=== PATIENT | male | born 1950 | race Caucasian/White ===

== ENCOUNTER 2018-03-23 09:00 | Outpatient (RCR) | payer OTHER, SELFPAY ==
--- NOTE | 2018-03-09 14:26 | PTTR_ITS ---
DATE: 03/09/18 SUBJECTIVE: Giuseppe reports continued improvements with his active abduction. He has been substituting, somewhat, to swing his arm into the scapular plane when abducting, such as when resting his elbow on his car door while driving. Still having difficulty with left side lying positions. OBJECTIVE: Manual therapy: ([id number]). Left glenohumeral joint A/AAROM through full range. Lateral distractions, caudal glides, internal and external rotation mobs. Therapeutic procedures ([id number]). * x See flow sheet: rhythmic stabilizations with arm flexed at 90 followed by prone Hughstons. Direct treatment time: 9:00 til 9:30 A.M. Completed strengthening via [facility] at no charge. Assessment: Holding up well with AROM. Improved abduction with less pain. Still weak with external rotation. Plan: Continue 2x per week on MSP while rechecking 1x every 2 weeks for upgrades in strengthening as need be. MM/gc
--- NOTE | 2018-03-23 09:00 | PN_ITS ---
DATE: 03/23/18 REFERRING: Dr. Palak Bautista REFERRING PROVIDER DIAGNOSIS:: L shoulder pain REPORTING PERIOD (for progress note and discharge note only): 01/19/18 to SUBJECTIVE: Patient reports still having difficulty with L sidelying positions and raising his arm into abduction with his palm down. This is virtually asymptomatic now with the palm up. Does feel as he is making continued progress with his strengthening in clinic on a minimally supervised basis. Follows up with orthopedist in mid April. Standardized Measures: * Disability Arm/Shoulder/Hand Score (DASH): 34%, which is comparable to what he scored at last visit. (Patient's DASH was miscalculated at last visit to be 9% which was actually 34%) . This can be seen in EMR on DASH that he filled out. OBJECTIVE: Treatment: Seen for a re-check. Manual Therapy [id number]: Patient's AROM of L GH joint flexion, IR/ER WNL, abduction is still painful with palm down position. With palm up, he is achieving 165 degrees with minimal pain. Strength is 4-/5 to 4/5 ER with mild pain, 4+/5 IR painfree. Flexion 4/5 with mild pain, abduction 4+/5 painfree with palm up position. He has (-) empty can , mildly (+) Hawkin's Tye, (-) Neer's, (-) Speed's, (-) belly compress, (-) lift off. Performed a friction massage over anterior cuff, trigger points to posterior cuff as well as some lateral distraction, caudal glides. Therapeutic Procedure [id number]: for review of rotator cuff strengthening, particularly for sidelying ER incorporating scap retraction and depression. ASSESSMENT: Patient has met all STG established at [facility] LTG remain appropriate, and still progressing towards achieving these goals (SEE BELOW). Do feel he is appropriate for continued therapeutic exercise which he has been performing on an independent program. ST) decrease pain by 50% - met 2) patient independent and compliant with HEP - met 3) patient sleeping through the night painfree - still remain appropriate and have not been met 4) increase strength to greater than 4/5 on the left with ext rotation and abduction - still remain appropriate and have not been met LTG: __[x]__ Return to premorbid level of function * __[x]__ Independent with self-maintenance program * *remain appropriate but have not been met G-Codes (add modifier after appropriate code): Patient's primary functional limitation is in the category of: * x Carrying, moving and handling objects: [id number] Projected goal: [id number] PLAN: Continue with MSP, will follow up with him prior to his ortho visit and issue MD note. MM/dl
== END 2018-04-03 23:59 | disposition home or self-care (01) ==
LOC: PT 09:00
PROVIDERS: PCP Family Medicine; Referring Provider Family Medicine; Visit Provider Family Medicine
DX: M25.512 Pain in left shoulder (principal); M75.42 Impingement syndrome of left shoulder
CPT/HCPCS: 97110; 97140

== ENCOUNTER 2018-12-14 01:21 | Outpatient (CLI) | payer OTHER, SELFPAY ==
[2018-12-14 13:42] LABS: ALT 61 U/L (12-78); AST 29 U/L (15-37); Albumin 3.6 g/dL (3.4-5.0); Alkaline Phosphatase 70 U/L (46-116); Anion Gap 8.8 mmol/L (3-11); BUN 22 mg/dL (7-18); Bilirubin, Total 0.6 mg/dL (0.2-1.0); CO2 29.2 mmol/L (21.0-32.0); CREATININE 1.29 mg/dL (0.70-1.30); Calcium 9.1 mg/dL (8.5-10.1); Chloride 105 mmol/L (98-107); Cholesterol 222 mg/dL (50-200); Estimated GFR 55.06 (mL/min/1.73m2); Glucose 96 mg/dL (70-100); HDL Cholesterol 47 mg/dL (40-60); LDL CHOLESTEROL 150 mg/dL (<100); Potassium 3.9 mmol/L (3.5-5.1); Sodium 143 mmol/L (136-145); Total Protein 6.8 g/dL (6.4-8.2); Triglyceride 175 mg/dL (30-150)
== END 2018-12-14 01:41 ==
PROVIDERS: PCP Family Medicine; Visit Provider Urology
DX: I10 Essential (primary) hypertension (principal); Z12.5 Encounter for screening for malignant neoplasm of prostate
CPT/HCPCS: 36415; 80053; 80061; 83721; 84153

== ENCOUNTER 2019-02-08 11:41 | Emergency (ER) | payer OTHER, SELFPAY ==
[2019-02-08] VITALS (42 sets, daily range): BP systolic 128–154; BP diastolic 75–88; PULSE 44–60; RESP 0–28; TEMP 37; O2SAT 89–99
--- NOTE | 2019-02-08 12:31 | DI.COMBO_ITS ---
SYMPTOM/DIAGNOSIS: LT FACIAL AND ARM TINGLING, ? ACUTE CVA PA AND LATERAL CHEST: The heart is normal in size. The lungs are clear. The mediastinal structures and pleura appear intact. CONCLUSION: Normal chest. CRANIAL CT (WITHOUT CONTRAST): A noncontrast cranial CT was performed. The ventricular system is normal in appearance. There is no evidence of an intracranial mass lesion. There is no evidence of a subdural or epidural hematoma. No focal areas of decreased attenuation are seen. CONCLUSION: Normal noncontrast Cranial CT.
--- NOTE | 2019-02-08 12:34 | ED.GENADUL_ITS ---
Discharge Plan Disposition Patient Disposition: AGAINST MEDICAL ADVICE Condition: Stable Discharge Details Chief Complaint: GenMedical Clinical Impression: Facial paresthesia, Paresthesia of left arm Primary Care Provider: Palak Bautista ED Provider: Rehana Singh Home Meds and New Rx's Prescriptions: Continued acetaminophen [Tylenol Extra Strength] 500 MG tablet 1,000 mg PO BID PRNRF: 0 hydrochlorothiazide 12.5 mg capsule 12.5 mg PO DAILY Qty: 90 RF: 4 No Action aspirin 81 mg tablet,chewable 81 mg PO DAILY RF: 0 Discharge Instructions Instructions: Paresthesia (ED) Additional Instructions: Call Dr. Bautista's office tomorrow morning to schedule a follow-up appointment for reevaluation and for referral for an outpatient carotid ultrasound and/or echocardiogram. Return immediately to the emergency department if you develop any worsening or new concerning symptoms. Discharge Data Discharge Date/Time-TO BE ENTERED AT DEPARTURE: 02/08/19 17:44 Discharge Physician: Rehana Singh Medical Decision Making 68-year-old male with a history of thoracic impingement disorder, sciatica, kidney stones who presents with left facial and left arm tingling since yesterday. Heart rate 50s, has dipped down to the 40s at times. Remainder vitals within normal limits. EKG notes a rate of 51, T wave inversion in 3 and aVF which is been seen in previous with new T wave inversion in V5 and V6 but no acute ST elevation. No focal deficits on exam. Patient appears comfortable and in no acute distress. Based on age and symptoms, sent for stat CT head with stroke protocol, screening labs and chest x-ray ordered. 1330 --CT head negative. Labs reviewed and unremarkable. Potassium 3.3. Troponin negative. Chest x-ray negative. Patient states he does not want to stay in the hospital. Discussed with patient my concern for his symptoms relating to possible stroke requiring further evaluation of his bradycardia and possible etiology of possible stroke. He is agreeable to stay for MRI brain which will be at 3:30 PM. 1545 --patient to go to MRI now. He states his left arm tingling has resolved but still admits to some left facial tingling and numbness. 1720 --MRI brain negative. Patient still admits to some left arm and facial tingling. Advised that patient stay for further evaluation including carotid ultrasound and echocardiogram and continued observation but patient is declining at this time. The risks of and disability due to a serious pathology were explained to patient fully understands. He demonstrates capacity make decisions. AMA form signed. Instructed to f/u with pcp in 2 days and return here immediately if worse. Medical Records Medical records reviewed: Yes I reviewed the patient's medical records. Imaging Data Radiologic Study: Radiologist's impression: PA AND LATERAL CHEST: The heart is normal in size. The lungs are clear. The mediastinal structures and pleura appear intact. CONCLUSION: Normal chest. CRANIAL CT (WITHOUT CONTRAST): A noncontrast cranial CT was performed. The ventricular system is normal in appearance. There is no evidence of an intracranial mass lesion. There is no evidence of a subdural or epidural hematoma. No focal areas of decreased attenuation are seen. CONCLUSION: Normal noncontrast Cranial CT. MR Head Without Contrast EXAM DATE/TIME: 02/08/2019 4:38 PM CLINICAL HISTORY: 68 years old, male; Numbness / parasthesia; Patient HX: Left facial and arm tingling, R/O acute CVA. TECHNIQUE: Imaging protocol: MR of the head without contrast. COMPARISON: CT HEAD FOR STROKE PROTOCOL 02/08/2019 12:40 PM FINDINGS: Brain: Ventricles and sulci are within normal limits. There is no evidence of an intracranial mass or shift. There is very minimal T2 bright signal involving the periventricular white matter which may be related to small vessel ischemic changes microangiopathy or senescent change. There may be minimal T2 bright signal within the joslyn. There is no restricted diffusion to suggest recent, acute or subacute ischemia or cytotoxic edema. There is no evidence of cortical or major vascular territory infarct. There is no abnormal susceptibility to suggest prior hemorrhage. Ventricles: No significant ventricular enlargement Bones/joints: Calvarium is unremarkable. Craniocervical junction is unremarkable Soft tissues: Unremarkable. Sinuses: There is mucoperiosteal thickening and retention cyst in the inferior aspect of the right maxillary antrum. There is no significant sinus opacification or fluid level Mastoid air cells: No significant mastoid opacification Orbits: The orbits are unremarkable Other vasculature: Flow voids in the intracranial vessels are unremarkable on the sequences obtained. IMPRESSION: No acute findings. No restricted diffusion to suggest recent, acute or subacute ischemia Lab Data Lab results reviewed: Yes I reviewed the patient's lab results. ECG Data Attestation: I personally reviewed and interpreted this ECG (s) as follows: Interpretation: Rate of 51, sinus, T wave inversion in 3 and aVF which is been seen in previous. New T wave inversion in V5 and V6. No acute ST elevation or depression. QTc 390. QRS 100. HPI General Mode of arrival: ambulatory . Date/Time Provider Initiated Documentation: 02/08/19 11:59 . Limitations to Documentation: no limitations . Information obtained by: patient . HPI Narrative: Patient is a 68-year-old male with a history of thoracic cord impingement, hypertension who presents to the ED with complaint of left-sided facial and left arm tingling since yesterday. Patient states his left facial tingling started yesterday in the left arm tingling started this morning. He states the tingling radiates from his shoulder down to his left thumb. He denies any weakness or pain. He denies any fever, chest pain, shortness of breath, dizziness, vision changes, headache, recent travel, recent surgery, leg pain or swelling. Patient states he had previously seen physical therapy for his history of thoracic cord impingement but his only symptoms with this or back pain and he denies any numbness or tingling with this. Related Data Home Medications Medication Instructions Recorded Confirmed acetaminophen [Tylenol Extra 1,000 mg PO BID PRN tab-cap 05/23/16 02/15/19 Strength] hydrochlorothiazide 12.5 mg capsule 12.5 mg PO DAILY #90 cap 11/10/18 02/15/19 aspirin 81 mg chewable tablet 81 mg PO DAILY 02/15/19 02/15/19 Previous Rx's Medication Instructions Recorded hydrochlorothiazide 12.5 mg capsule 12.5 mg PO DAILY #90 cap 11/10/18 Allergies Allergy/AdvReac Type Severity Reaction Status Date / Time No Known Allergies Allergy Unverified 02/15/19 09:32 General Stated Complaint: GenMedical FLORINDA: 3 Review of Systems Review of Systems All systems reviewed & are unremarkable except as noted in HPI and below Constitutional Reports as per HPI, Denies chills and Denies fever(s) Eyes Denies blurry vision ENT Denies dizziness, Denies sore throat and Denies throat swelling Cardiovascular Denies chest pain and Denies dyspnea Respiratory Denies cough and Denies dyspnea Gastrointestinal Denies abdominal pain, Denies diarrhea and Denies vomiting Genitourinary Denies hematuria and Denies dysuria Musculoskeletal Denies back pain, Denies numbness and Reports tingling Integumentary/Breasts Denies lesions and Denies rash Neurologic Denies dizziness, Denies focal weakness, Denies numbness and Reports tingling Allergic/Immunologic Denies throat swelling [facility] Medical History 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) Right flank pain (Resolved 12/02/16) Raised prostate specific antigen (Chronic) Polyp of colon (Chronic 08/27/12) Lumbar disc disease with radiculopathy (Chronic 05/09/15) Left hip pain (Chronic 03/27/15) Knee pain (Chronic) Hyperlipidemia (Chronic 02/01/13) Hearing loss (Chronic) Fatigue (Chronic 01/22/18) Diverticulosis of colon without diverticulitis (Chronic 08/27/12) Depressive disorder (Chronic) 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) Epistaxis (Resolved) Essential hypertension (Resolved 07/30/13) Hypocalcemia (Resolved) Impingement syndrome of shoulder region (Resolved) Inguinal hernia (Resolved) Kidney stone (Resolved) Left sided sciatica (Resolved 05/04/15) Pre-op exam (Resolved 10/24/15) Surgical History S/P spinal surgery (Chronic 11/20/15) S/P foot surgery (Resolved) S/P inguinal hernia repair (Resolved) S/P prostatectomy (Resolved) S/P rotator cuff repair (Resolved) Back surgery Colonoscopy - IV Sedation (08/26/12) Prostatectomy Repair of inguinal hernia Rotator Cuff Repair Surgeries Family History Mother Essential hypertension Dementia Father Dementia Lung cancer Sister No problems noted. Brother No problems noted. Brother No problems noted. Social History Smoking/Tobacco Use Status: Never Alcohol Intake: current Alcohol Intake frequency: 0-2 drinks per day Drug use: Never Substance use type: does not use Caregiver/Support person: No Household members: none Communication Needs: Hard of Hearing Pets and animals: Yes Pets and animals: cat(s) Sexually active: Yes Do you think of yourself as: straight/heterosexual Current gender identity: male What is your relationship status?: How often do you talk on the phone with friends or family?: twice per week How often do you get together with friends or relatives?: once per week How often do you attend yazidi or protestant services?: 4 or more times per year Do you belong to any clubs or organized social groups?: no Panel score (0-1 are the most socially isolated patients): 2 What type of physical activity do you participate in: walking Duration: 30-45 minutes/day Frequency: daily Belkis/Mormon: Uatsdin Special belkis needs: No Seatbelt use: always Drive intox or ride w/intox escort vehicle driver: No Do you feel safe at home: Yes Do you feel safe in your relationship?: Yes Exam Const General: cooperative, healthy appearing and no acute distress HENMT Head: normal to inspection Face and sinus: normal facial exam Eyes General: appearance normal, both eyes and all related structures Pupils: PERRL EOM: EOM intact bilaterally Neck Neck: normal visual inspection and No submandibular swelling Lymphatic: no lymphadenopathy noted Chest Chest: normal inspection of the chest and no tenderness Resp Effort & Inspection: normal respiratory effort and able to speak in complete sentences Auscultation: clear to auscultation bilaterally Cardio Rate: regular rate Rhythm: regular rhythm GI Inspection: normal to inspection Palpation: soft, not firm, not rigid and nontender Auscultation: normal bowel sounds Male General Exam: Yes normal external exam Skin General skin exam: no rashes or lesions noted Neuro General: alert, awake and oriented x3 Cranial Nerves: CN's II-XI intact bilaterally Cognition: normal cognition Speech: speech normal Motor: muscle tone normal throughout and strength 5/5 throughout Sensory Exam: no sensory deficits noted Extrem General: normal to inspection, full ROM, normal capillary refill, no calf tenderness bilaterally and no edema Psych Appearance: grossly normal Mental Status: mental status grossly normal Speech and Movement: speech and movement normal Affect: normal affect Course Vital Signs Temperature 98.6 F 02/08/19 11:55 Pulse 54 L 02/08/19 11:55 Respiratory Rate 16 02/08/19 11:55 Blood Pressure 147/88 H 02/08/19 11:55 Pulse Oximetry 99 02/08/19 11:55 Temperature 98.6 F 02/08/19 11:55 Temperature Source Skin 02/08/19 11:55 Pulse 54 L 02/08/19 11:55 Respiratory Rate 16 02/08/19 11:55 Respiratory Effort Non-Labored 02/08/19 11:55 Blood Pressure 147/88 H 02/08/19 11:55 Blood Pressure Position Sitting 02/08/19 11:55 Pulse Oximetry 99 02/08/19 11:55 Oxygen Delivery Method Room Air 02/08/19 11:55 Oxygen Flow Rate 0 02/08/19 11:55 Pain Level 0 02/08/19 11:55
[2019-02-08 12:50] LABS: Absolute Basophil Count 0.02 k/cumm (0.0-0.2); Absolute Eosinophil Count 0.13 k/cumm (0.0-0.7); Absolute Lymphocyte Count 1.38 k/cumm (1.2-3.4); Absolute Neutrophil Count 3.26 k/cumm (1.2-6.7); Basophils % 0.4; Eosinophils % 2.5; HCT 43.8 % (40.0-50.0); HGB 15.7 g/dL (13.5-17.5); Lymphocytes % 26.1; Mean Corp. HGB Concentration 35.8 g/dL (32.0-36.0); Mean Corpuscular Hemoglobin 34.1 pg (27.0-33.0); Mean Platelet Volume 10.7 fL (8.0-11.0); Monocytes % 9.5; Neutrophils % 61.5; Platelet Count 156 x1000/uL (130-400); RBC 4.61 m/cumm (4.50-6.00); RBC Distribution Width 12.9 % (11.8-14.1); White Blood Cell Count 5.29 k/cumm (4.4-10.8)
[2019-02-08 13:08] LABS: ALT 30 U/L (12-78); AST 15 U/L (15-37); Albumin 3.7 g/dL (3.4-5.0); Alkaline Phosphatase 68 U/L (46-116); Anion Gap 10.6 mmol/L (3-11); BUN 19 mg/dL (7-18); Bilirubin, Total 0.8 mg/dL (0.2-1.0); CO2 25.4 mmol/L (21.0-32.0); CREATININE 1.15 mg/dL (0.70-1.30); Chloride 105 mmol/L (98-107); Glucose 100 mg/dL (70-100); Magnesium 1.9 mg/dL (1.8-2.4); Potassium 3.3 mmol/L (3.5-5.1); Sodium 141 mmol/L (136-145)
[2019-02-08 13:09] LABS: Troponin I < 0.05 ng/mL (0.00-0.06)
[2019-02-08 13:13] LABS: PTT Activated 25.9 sec (21.0-31.4); Prothrombin Time 10.2 sec (9.3-11.0)
--- NOTE | 2019-02-08 16:40 | DI.MRI_ITS ---
SYMPTOM/DIAGNOSIS: LEFT FACIAL AND ARM TINGLING. R/O ACUTE CVA BRAIN MRI: 02/08/19 MR examination of the brain was performed according to the usual protocol. Incidental note is made of an apparent retention cyst of the right maxillary antrum. There is moderate generalized cerebral atrophy and there are multiple small focal areas of abnormal signal and periventricular white matter consistent with microvascular ischemic change. No other significant signal abnormality identified in the brain. The orbital and temporal bone structures appear intact. There is normal flow void in the [place] vasculature. Pituitary is unremarkable. Susceptibility weighted imaging shows no evidence of intracranial hemorrhage. Diffusion weighted imaging shows no evidence of infarct. CONCLUSION: Atrophy and mild microvascular ischemic changes of white matter. No other significant findings.
--- NOTE | 2019-02-08 17:19 | DI.VRAD_ITS ---
EXAM: MR Head Without Contrast EXAM DATE/TIME: 02/08/2019 4:38 PM CLINICAL HISTORY: 68 years old, male; Numbness / parasthesia; Patient HX: Left facial and arm tingling, R/O acute CVA. TECHNIQUE: Imaging protocol: MR of the head without contrast. COMPARISON: CT HEAD FOR STROKE PROTOCOL 02/08/2019 12:40 PM FINDINGS: Brain: Ventricles and sulci are within normal limits. There is no evidence of an intracranial mass or shift. There is very minimal T2 bright signal involving the periventricular white matter which may be related to small vessel ischemic changes microangiopathy or senescent change. There may be minimal T2 bright signal within the joslyn. There is no restricted diffusion to suggest recent, acute or subacute ischemia or cytotoxic edema. There is no evidence of cortical or major vascular territory infarct. There is no abnormal susceptibility to suggest prior hemorrhage. Ventricles: No significant ventricular enlargement Bones/joints: Calvarium is unremarkable. Craniocervical junction is unremarkable Soft tissues: Unremarkable. Sinuses: There is mucoperiosteal thickening and retention cyst in the inferior aspect of the right maxillary antrum. There is no significant sinus opacification or fluid level Mastoid air cells: No significant mastoid opacification Orbits: The orbits are unremarkable Other vasculature: Flow voids in the intracranial vessels are unremarkable on the sequences obtained. IMPRESSION: No acute findings. No restricted diffusion to suggest recent, acute or subacute ischemia Dictated and Authenticated by: Alma Singleton MD. Ordering:WILLOW Kimball MD
== END 2019-02-08 17:44 | disposition left against medical advice (07) ==
PROVIDERS: Emergency Provider Physician Assistant; PCP Family Medicine
DX: R20.2 Paresthesia of skin (principal); M51.04 Intervertebral disc disorders with myelopathy, thoracic region; I10 Essential (primary) hypertension
CPT/HCPCS: 36415; 80053; 93005; 99285; 70450; 70551; 71046; 83735; 84484; 85025; 85610; 85730; 93010

== ENCOUNTER 2019-02-09 08:56 | Emergency (ER) | payer OTHER, SELFPAY ==
[2019-02-09] VITALS (46 sets, daily range): BP systolic 125–152; BP diastolic 66–110; PULSE 43–65; RESP 15–25; TEMP 36.5–37.1; O2SAT 92–98
--- NOTE | 2019-02-09 09:19 | W.ED.GENAD ---
Discharge Plan Disposition Patient Disposition: HOME Condition: Stable Discharge Details Chief Complaint: Recheck Clinical Impression: Arm numbness left Primary Care Provider: Palak Bautista ED Provider: Kelin Hensley Home Meds and New Rx's Prescriptions: Discontinued ibuprofen 200 MG tablet 2 - 4 tab PO PRN RF: 0 No Action acetaminophen [Tylenol Extra Strength] 500 MG tablet 1,000 mg PO BID PRNRF: 0 hydrochlorothiazide 12.5 mg capsule 12.5 mg PO DAILY Qty: 90 RF: 4 Discharge Instructions Additional Instructions: Please return to the emergency department if you develop any new or worsening symptoms or if you become otherwise concerned. It is extremely important that you call as soon as possible to make an appointment to be seen in follow-up for this visit by neurology (Dr. Padilla) and by your primary care doctor. Please take 81 mg of aspirin daily as we discussed. You will also need to have an echocardiogram performed as we discussed, that has been ordered for you. Referrals: Palak Bautista MD, [place] [Primary Care Provider] - Rox Padilla MD [ [facility] ST[facility]FF PHYSICIAN] - Medical Decision Making Pete Wesley is a 68-year-old man with history of hypertension, hyperlipidemia, kidney stones, sciatica who presented to the emergency department with numbness of the left arm that began on 02/07 after undergoing work-up here yesterday that was negative and leaving AGAINST MEDICAL ADVICE as opposed to being admitted for stroke work-up. On exam patient is very well and nontoxic appearing. Benign neurologic exam. Subtle cardiac murmur noted, unknown to patient. At this time, given negative MRI brain yesterday, also atypical features on HPI, doubt acute stroke. Concern for cervical radiculopathy, although this does not explain numbness of the face or leg. or leg. Possible atypical ACS symptoms, though very low suspicion. Patient with low HEART score, numbness changing with position, no exertional symptoms, no pain, nausea or pulm symptoms. Exam/history is not consistent with acute aortic or other vascular pathology, sepsis. Plan for EKG, screening labs, outpatient follow-up for possible echo, carotid artery ultrasound, will repeat trop and EKG if initial work up negative. No chest x-ray as symptoms improving since yesterday and chest x-ray was performed during that visit. Will monitor and reassess. Discussed patient presentation with Dr. Rox Padilla of neurology, who reviewed patient's MRI that was performed yesterday. She reports that she sees tiny abnormality on MRI that could be indicative of possible pathology causing patient's symptoms, requests CTA head and neck. If imaging results negative for critical stenosis, she requests outpatient management with 81 mg aspirin and 30 days of 75 mg Plavix, outpatient follow-up with neurology, outpatient echocardiogram and 30-day event monitor. CTA negative per radiology. Patient reports that in the past his primary care doctor has put him on 81 mg of aspirin daily, and he has had easy bleeding from skin wounds, and a stop the aspirin. He has never had GI bleeding or other bleeding while taking aspirin. Given his history, plan to hold Plavix at this time, but will recommend the patient begin taking 81 mg of aspirin daily as a trial. Had a lengthy discussion with the patient regarding return to emergency department precautions, importance of outpatient follow-up with both his primary care doctor and also with neurology, outpatient follow-up for echocardiogram, and home care. Patient verbalized understanding of the plan was amenable. All questions were answered. Patient was discharged home with clear plan for outpatient follow-up. Medical Records Medical records reviewed: Yes I reviewed the patient's medical records. Imaging Data Radiologic Study: Attestation: I personally reviewed and interpreted this imaging study as follows: Radiologist's impression: CT ANGIOGRAPHY OF CERVICAL CRANIAL : 02/09/19 CT angiography was performed with multi slice acquisition and multi planar and 3D reconstruction. Initial noncontrast cranial CT was negative. CT angiography of the neck and head was performed with intravenous infusion of 100 cc Omnipaque 350. The common internal and external carotid arteries appear normal bilaterally including the intracranial ICA's. No evidence of aneurysm, dissection or stenosis. The vertebral arteries appear normal bilaterally with no evidence of aneurysm, dissection or stenosis. The basilar artery appears normal. The anterior middle and posterior cerebral arteries and major branches appear intact with no evidence of aneurysm, dissection or stenosis. No intracranial enhancing mass identified. No cervical mass or adenopathy. Tracheolaryngeal structures appear intact. The visualized lung apices are clear. CONCLUSION: Negative cervical cranial CTA. Lab Data Lab results reviewed: Yes I reviewed the patient's lab results. Laboratory Tests Range/Units 02/09/19 02/09/19 02/09/19 09:07 09:07 12:05 WBC (4.4-10.8) k/cumm 4.65 RBC (4.50-6.00) m/cumm 4.70 Hgb (13.5-17.5) g/dL 16.0 Hct (40.0-50.0) % 44.9 MCV (80-95) fL 95.5 H MCH (27.0-33.0) pg 34.0 H MCHC (32.0-36.0) g/dL 35.6 RDW (11.8-14.1) % 12.8 Plt Count (130-400) x1000/uL 156 MPV (8.0-11.0) fL 10.8 Immature Gran % 0.2 Neutrophils % 50.8 Lymphocytes % 34.0 Monocytes % 11.4 Eosinophils % 3.2 Basophils % 0.4 Absolute Neutrophils (1.2-6.7) k/cumm 2.36 Absolute Lymphocytes (1.2-3.4) k/cumm 1.58 Absolute Monocytes (0.11-0.7) k/cumm 0.53 Absolute Eosinophils (0.0-0.7) k/cumm 0.15 Absolute Basophils (0.0-0.2) k/cumm 0.02 Sodium (136-145) mmol/L 141 Potassium (3.5-5.1) mmol/L 3.4 L Chloride (98-107) mmol/L 105 Carbon Dioxide (21.0-32.0) mmol/L 27.6 Anion Gap (3-11) mmol/L 8.4 BUN (7-18) mg/dL 20 H Creatinine (0.70-1.30) mg/dL 1.33 H Estimated GFR/1.73 m2 (mL/min/1.73m2) 53.16 Glucose (70-100) mg/dL 88 Calcium (8.5-10.1) mg/dL 8.9 Total Bilirubin (0.2-1.0) mg/dL 0.8 AST (15-37) U/L 13 L ALT (12-78) U/L 27 Alkaline Phosphatase (46-116) U/L 67 Troponin I (0.00-0.06) ng/mL < 0.05 < 0.05 Total Protein (6.4-8.2) g/dL 6.8 Albumin (3.4-5.0) g/dL 3.5 ECG Data Attestation: I personally reviewed and interpreted this ECG (s) as follows: Interpretation: EKG 9:03 shows sinus bradycardia at 53, borderline left axis, nonspecific ST changes present on prior 02/08/2019, nondiagnostic EKG EKG 12:09 sinus bradycardia at 45, normal axis, nonspecific ST changes unchanged from prior, nondiagnostic EKG HPI General Mode of arrival: ambulatory. Date/Time Provider Initiated Documentation: 02/09/19 09:19. Limitations to Documentation: no limitations. Information obtained by: patient, RN notes reviewed and old records reviewed. HPI Narrative: Pete Wesley is a 68-year-old man with history of hypertension, hyperlipidemia, kidney stones, sciatica presenting to the emergency department with arm numbness. Per record review and patient report, patient was seen here yesterday for numbness. Numbness began 02/07/2019, started in his left lower face, progressed into his left arm. Also with periodic numbness in his left leg. Patient underwent CT brain, MRI brain which were both negative. Patient was to be admitted for monitoring, carotid ultrasound, echocardiogram, patient elected to leave AGAINST MEDICAL ADVICE from the emergency department. Patient reports that he called Dr. Ramos's office to schedule outpatient follow-up, and was told to return to the emergency department. Patient reports that he currently has mild numbness in the left arm. He denies numbness of the face or leg. He denies any pain whatsoever, no cough, no shortness of breath, no nausea/vomiting/diarrhea, no weakness the extremities, no visual changes, no speech changes. Patient reports that otherwise he feels very well in his usual state of health. Patient also notes that he seems to notice the numbness after he stays in a certain position for 10 to 15 minutes at a time, and numbness resolves when he changes position. He does not have any exertional symptoms. Patient reports his symptoms are significantly improved from when he was seen here yesterday. Has been eating and drinking as usual. No recent illness. No recent travel. Related Data Home Medications Medication Instructions Recorded Confirmed acetaminophen [Tylenol Extra 1,000 mg PO BID PRN tab-cap 05/23/16 02/09/19 Strength] hydrochlorothiazide 12.5 mg capsule 12.5 mg PO DAILY #90 cap 11/10/18 02/09/19 Previous Rx's Medication Instructions Recorded hydrochlorothiazide 12.5 mg capsule 12.5 mg PO DAILY #90 cap 11/10/18 Allergies Allergy/AdvReac Type Severity Reaction Status Date / Time No Known Allergies Allergy Unverified 02/09/19 09:09 General Stated Complaint: Recheck FLORINDA: 3 Review of Systems Review of Systems Constitutional: denies fevers Eyes: denies eye pain ENT: denies facial pain, dental pain, sore throat Cardiovascular: denies chest pain, edema Respiratory: denies SOB, cough GI: denies abdominal pain, vomiting, diarrhea : denies flank pain MSK: denies back pain, neck pain, arthralgias, myalgias Skin: denies rash Neuro: denies headaches, weakness, reports numbness left face, left arm, and left leg, although numbness is intermittent and has only been occurring in the left arm today [facility] Medical History 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) Right flank pain (Resolved 12/02/16) Raised prostate specific antigen (Chronic) Polyp of colon (Chronic 08/27/12) Lumbar disc disease with radiculopathy (Chronic 05/09/15) Left hip pain (Chronic 03/27/15) Knee pain (Chronic) Hyperlipidemia (Chronic 02/01/13) Hearing loss (Chronic) Fatigue (Chronic 01/22/18) Diverticulosis of colon without diverticulitis (Chronic 08/27/12) Depressive disorder (Chronic) 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) Epistaxis (Resolved) Essential hypertension (Resolved 07/30/13) Hypocalcemia (Resolved) Impingement syndrome of shoulder region (Resolved) Inguinal hernia (Resolved) Kidney stone (Resolved) Left sided sciatica (Resolved 05/04/15) Pre-op exam (Resolved 10/24/15) Social History Smoking/Tobacco Use Status: Never Alcohol Intake: current Alcohol Intake frequency: 0-2 drinks per day Drug use: Never Substance use type: does not use Caregiver/Support person: No Household members: none Communication Needs: Hard of Hearing Pets and animals: Yes Pets and animals: cat(s) Sexually active: Yes Do you think of yourself as: straight/heterosexual Current gender identity: male What is your relationship status?: How often do you talk on the phone with friends or family?: twice per week How often do you get together with friends or relatives?: once per week How often do you attend gnosticist or caodaism services?: 4 or more times per year Do you belong to any clubs or organized social groups?: no Panel score (0-1 are the most socially isolated patients): 2 What type of physical activity do you participate in: walking Duration: 30-45 minutes/day Frequency: daily Belkis/Sabianist: Caodaism Special belkis needs: No Seatbelt use: always Drive intox or ride w/intox chain saw driver: No Do you feel safe at home: Yes Do you feel safe in your relationship?: Yes Exam Narrative Exam Narrative: Constitutional: well and [id number], pleasant, conversing normally HENT: head atraumatic/normocephalic/normal inspection, mucous membranes moist Eyes: conjunctiva normal, sclera normal, pupils 3mm b/l, pupils equal round reactive to light and accommodation, extraocular movements intact Neck: no stridor, normal ROM, trachea midline Chest: normal inspection Resp: normal work of breathing, LCTAB Cardio: normal rate, normal rhythm, 1/6 systolic murmur left parasternal border GI: abdomen soft, non-tender, non-distended Back: normal inspection, no rash Skin: warm, dry, normal color, no rash Neuro: alert, not altered, grossly non-focal, normal tone, cranial nerves II through XII intact, motor 5 out of 5 throughout, normal sensation all extremities Ext: no edema, no posterior calf tenderness Psych: normal mood, normal affect, normal behavior Course Vital Signs Temperature 37.1 C 02/09/19 09:01 Pulse 53 L 02/09/19 09:01 Respiratory Rate 18 02/09/19 09:01 Blood Pressure 144/76 H 02/09/19 09:01 Pulse Oximetry 94 L 02/09/19 09:01 Temperature 37.1 C 02/09/19 09:01 Temperature Source Skin 02/09/19 09:01 Pulse 53 L 02/09/19 09:01 Respiratory Rate 18 02/09/19 09:01 Respiratory Effort Non-Labored 02/09/19 09:08 Blood Pressure 144/76 H 02/09/19 09:01 Blood Pressure Position Sitting 02/09/19 09:01 Pulse Oximetry 94 L 02/09/19 09:01 Oxygen Delivery Method Room Air 02/09/19 09:01 Oxygen Flow Rate 0 02/09/19 09:01
[2019-02-09 10:00] LABS: Abs Immature Grans 0.01 k/cumm (0.0-0.09); Absolute Basophil Count 0.02 k/cumm (0.0-0.2); Absolute Eosinophil Count 0.15 k/cumm (0.0-0.7); Absolute Lymphocyte Count 1.58 k/cumm (1.2-3.4); Absolute Monocyte Count 0.53 k/cumm (0.11-0.7); Absolute Neutrophil Count 2.36 k/cumm (1.2-6.7); Basophils % 0.4; Eosinophils % 3.2; HCT 44.9 % (40.0-50.0); Immature Grans % 0.2; Mean Corp. HGB Concentration 35.6 g/dL (32.0-36.0); Mean Corpuscular Volume 95.5 fL (80-95); Mean Platelet Volume 10.8 fL (8.0-11.0); Monocytes % 11.4; Neutrophils % 50.8; Platelet Count 156 x1000/uL (130-400); RBC Distribution Width 12.8 % (11.8-14.1); White Blood Cell Count 4.65 k/cumm (4.4-10.8)
--- NOTE | 2019-02-09 10:17 | DI.CT_ITS ---
SYMPTOM/DIAGNOSIS: LEFT FACE, ARM AND LEG NUMBNESS CT ANGIOGRAPHY OF CERVICAL CRANIAL : 02/09/19 CT angiography was performed with multi slice acquisition and multi planar and 3D reconstruction. Initial noncontrast cranial CT was negative. CT angiography of the neck and head was performed with intravenous infusion of 100 cc Omnipaque 350. The common internal and external carotid arteries appear normal bilaterally including the intracranial ICA's. No evidence of aneurysm, dissection or stenosis. The vertebral arteries appear normal bilaterally with no evidence of aneurysm, dissection or stenosis. The basilar artery appears normal. The anterior middle and posterior cerebral arteries and major branches appear intact with no evidence of aneurysm, dissection or stenosis. No intracranial enhancing mass identified. No cervical mass or adenopathy. Tracheolaryngeal structures appear intact. The visualized lung apices are clear. CONCLUSION: Negative cervical cranial CTA.
[2019-02-09 10:18] LABS: ALT 27 U/L (12-78); AST 13 U/L (15-37); Albumin 3.5 g/dL (3.4-5.0); Alkaline Phosphatase 67 U/L (46-116); Anion Gap 8.4 mmol/L (3-11); BUN 20 mg/dL (7-18); Bilirubin, Total 0.8 mg/dL (0.2-1.0); CO2 27.6 mmol/L (21.0-32.0); CREATININE 1.33 mg/dL (0.70-1.30); Calcium 8.9 mg/dL (8.5-10.1); Chloride 105 mmol/L (98-107); Estimated GFR 53.16 (mL/min/1.73m2); Glucose 88 mg/dL (70-100); Potassium 3.4 mmol/L (3.5-5.1); Sodium 141 mmol/L (136-145); Total Protein 6.8 g/dL (6.4-8.2)
[2019-02-09 10:19] LABS: Troponin I < 0.05 ng/mL (0.00-0.06)
[2019-02-09] MEDS: Omnipaque 350 MG/ML 100 ML BTL IJ (11:16)
[2019-02-09 12:52] LABS: Troponin I < 0.05 ng/mL (0.00-0.06)
--- NOTE | 2019-02-09 17:54 | NUR.NOTE ---
Nursing Note: Referral faxed to Neurology, Dr. Padilla for follow up. Dr. Robert Hensley did consult with Dr. Padilla in regards to this patient. Margo Dasilva.
--- NOTE | 2019-03-15 11:44 | CER_ITS ---
DATE OF DICTATION: March 15, 2019 [employer] MONITOR REPORT MONITOR IN PLACE: February 09 - March 10, 2019 Baseline rhythm sinus bradycardia, average rate 47 bpm. No atrial fibrillation. Less than 1% ventricular ectopy. Two runs of NSVT appreciated, 3-beat, 8-beat duration. Two different morphologies. Both events occu r in the telemarketing sales representative hours: 2:30 a.m., 6:44 a.m. No significant pauses. Nocturnal heart rates as low as 39 bpm, sinus bradycardia. Two stable automatically-detected events: VT as above. Five manually-detected events occurring during sinus bradycardia. No symptoms.
== END 2019-02-09 14:17 | disposition home or self-care (01) ==
PROVIDERS: Emergency Provider Student in an Organized Health Care Education/Training Program; PCP Family Medicine
DX: R20.2 Paresthesia of skin (principal); R00.1 Bradycardia, unspecified; I10 Essential (primary) hypertension
CPT/HCPCS: 36415; 70496; 70498; 80053; 93005; 93270; 99285; 84484; 85025; 93010; J3490

== ENCOUNTER 2019-02-11 14:56 | Outpatient (CLI) | payer OTHER, SELFPAY ==
--- NOTE | 2019-02-11 12:35 | MERGE_ITS ---
*[facility]* *[facility]* [address] [place] [address] Date of study: 02/11/2019 Transthoracic Echocardiography M-mode, complete 2D, complete spectral Doppler, and color Doppler *STUDY CONCLUSIONS* Summary: 1. Left ventricle: The cavity size was normal. There was mild concentric hypertrophy. Systolic function was normal. The estimated ejection fraction was 60-65%. Wall motion was normal; there were no regional wall motion abnormalities. 2. Aortic valve: There was mild regurgitation. 3. Mitral valve: There was mild regurgitation. 4. Right ventricle: The cavity size was normal. Wall thickness was normal. Systolic function was normal. 5. Right atrium: The atrium was mildly dilated. *PATIENT PRESENTATION* Height: 172.7cm (68in ) S/D Pressure: 139 / 76 Weight: 77.1kg (169.6lb ) BSA: 1.94m^2 Test start time: 12:55 PM. Test stop time: 01:45 PM. REFERRING Palak Bautista PERFORMING Unknown PERFORMING [facility] CONSULTING Rox Padilla Kara J REFERRING Kelin Hensley PATTERN PUNCHER RT Susan (R)([id number])ABY *PROCEDURE DATA* Procedure information: This study was interpreted by [facility]. Pertinent images and digital data are archived for permanent storage and are available for subsequent review. Comparison was made to the study of 02/11/2018. Study status: Routine. Transthoracic echocardiography. M-mode, complete 2D, complete spectral Doppler, and color Doppler. A Transthoracic Echocardiogram was performed. Scanning was performed from the parasternal, apical, subcostal, and suprasternal notch acoustic windows. Images were obtained using an [id number] cardiac ultrasound machine. Image quality was adequate. Study completion: The patient tolerated the procedure well. History: PMH: Left arm numbness, murmur, r01.1 *CARDIAC ANATOMY* Left ventricle: The cavity size was normal. There was mild concentric hypertrophy. Systolic function was normal. The estimated ejection fraction was 60-65%. Wall motion was normal; there were no regional wall motion abnormalities. Diastolic parameters were normal for age. Aortic valve: Trileaflet; normal thickness leaflets. Mobility was not restricted. Doppler: Transvalvular velocity was within the normal range. There was no stenosis. There was mild regurgitation. VTI ratio of LVOT to aortic valve: 0.72. Valve area (VTI): 2.3cm^2. Indexed valve area (VTI): 1.2cm^2/m^2. Peak velocity ratio of LVOT to aortic valve: 0.67. Valve area (Vmax): 2.1cm^2. Indexed valve area (Vmax): 1.1cm^2/m^2. Mean velocity ratio of LVOT to aortic valve: 0.61. Valve area (Vmean): 1.9cm^2. Indexed valve area (Vmean): 1cm^2/m^2. Mean gradient (S): 5mm Hg. Peak gradient (S): 8.9mm Hg. Aorta: Aortic root: The aortic root was normal in size. Ascending aorta: The ascending aorta was normal in size. Mitral valve: Structurally normal valve. Mobility was not restricted. Doppler: Transvalvular velocity was within the normal range. There was no evidence for stenosis. There was mild regurgitation. Valve area by pressure half-time: 2.8cm^2. Indexed valve area by pressure half-time: 1.5cm^2/m^2. Left atrium: The atrium was normal in size. Right ventricle: The cavity size was normal. Wall thickness was normal. Systolic function was normal. Pulmonic valve: Structurally normal valve. The pulmonary valve appears to be grossly normal. Doppler: Transvalvular velocity was within the normal range. There was no evidence for stenosis. There was mild regurgitation. Peak gradient (S): 3.7mm Hg. Tricuspid valve: Structurally normal valve. Doppler: Transvalvular velocity was within the normal range. There was no evidence for stenosis. There was trivial regurgitation. Pulmonary artery: Pulmonary systolic pressure was within the normal range, in the range of 30mm Hg to 35mm Hg. Right atrium: The atrium was mildly dilated. Pericardium: There was no pericardial effusion. Systemic veins: Inferior vena cava: Well visualized. The vessel was patent and normal in size. The respirophasic diameter changes were in the normal range (greater than or equal to 50%). Baseline ECG: Bradycardia. Measurements Left ventricle Value 02/11/2018 Reference LV ID, ED, PLAX 4.9 cm 4.8 3.5 - 6.0 LV ID, ES, PLAX 3.0 cm 3.0 2.1 - 4.0 LV PW thickness, ED, PLAX 1.2 cm 1.2 LV end-diastolic volume, 70 ml 64 1-p A2C LV ejection fraction, 1-p 68 % 50 A2C LV end-diastolic volume, 75 ml 88 1-p A4C LV ejection fraction, 1-p 68 % 62 A4C LV e', lateral 0.071 m/sec 0.07 LV E/e', lateral 8 8 LV e', medial 0.051 m/sec 0.048 LV E/e', medial 11 11 LV e', average 0.061 m/sec 0.059 LV E/e', average 9 9 Ventricular septum Value 02/11/2018 Reference IVS thickness, ED, PLAX 1.3 cm 1.3 LVOT Value 02/11/2018 Reference LVOT ID, A-P 2.0 cm 2.0 LVOT area 3.1 cm^2 3 LVOT peak velocity, S 1 m/sec 1.11 LVOT mean velocity, S 0.65 m/sec 0.72 LVOT VTI, S 23.7 cm 23.8 LVOT peak gradient, S 4 mm Hg 5 LVOT mean gradient, S 2 mm Hg 2.4 Stroke volume (SV), LVOT 74 ml 72 DP Stroke index (SV/bsa), 38 ml/m^2 38 LVOT DP Aortic valve Value 02/11/2018 Reference Aortic valve peak 1.5 m/sec 1.6 velocity, S Aortic valve mean 1.1 m/sec 1.1 velocity, S Aortic valve VTI, S 33.0 cm 30.8 Aortic mean gradient, S 5 mm Hg 5.6 Aortic peak gradient, S 8.9 mm Hg 10.7 VTI ratio, LVOT/AV 0.72 0.77 Aortic valve area, VTI 2.3 cm^2 2.3 Velocity ratio, peak, 0.67 0.68 LVOT/AV Aortic valve area, peak 2.1 cm^2 2.1 velocity Velocity ratio, mean, 0.61 0.64 LVOT/AV Aortic valve area, mean 1.9 cm^2 1.9 velocity Aortic valve area/bsa, 1 cm^2/m^2 1 mean velocity Aortic regurg deceleration 185 cm/s^2 253 Aortic regurg pressure 749 ms 628 half-time Aorta Value 02/11/2018 Reference Aortic root ID, ED 3.7 cm 3.6 Ascending aorta ID, A-P, S 3.5 cm 3.4 Left atrium Value 02/11/2018 Reference LA ID, A-P, ES 3.5 cm 3.6 LA ID/bsa, A-P 1.8 cm/m^2 1.9 <=2.2 LA volume, ES, 2-p 55 ml 56 LA volume/bsa, ES, 2-p 28 ml/m^2 29 LA/aortic root ratio 0.96 1.01 Mitral valve Value 02/11/2018 Reference Mitral E-wave peak 0.57 m/sec 0.54 velocity Mitral A-wave peak 0.62 m/sec 0.74 velocity Mitral deceleration time (H) 270 ms 180 150 - 230 Mitral pressure half-time 78 ms 52 Mitral E/A ratio, peak 0.92 0.73 Mitral valve area, PHT, DP 2.8 cm^2 4.2 Pulmonary veins Value 02/11/2018 Reference Pulmonary vein peak 0.84 m/sec 0.62 velocity, S Pulmonary vein peak 0.4 m/sec 0.29 velocity, D Pulmonary vein velocity 2.13 2.16 ratio, peak, S/D Tricuspid valve Value 02/11/2018 Reference Tricuspid regurg peak 2.6 m/sec 2.3 velocity Tricuspid peak RV-RA 26.2 mm Hg 21.3 gradient Right atrium Value 02/11/2018 Reference RA area, ES, A4C (H) 22.8 cm^2 24.2 8.3 - 19.5 Pulmonic valve Value 02/11/2018 Reference Pulmonic peak gradient, S 3.7 mm Hg 3.2 Legend: (L) and (H) ceasar values outside specified reference range. I have personally reviewed the images and have reviewed and edited the reported findings. Electronically signed by Jeff Barton 02/11/2019 15:45
== END 2019-02-11 15:16 ==
PROVIDERS: PCP Family Medicine; Visit Provider Student in an Organized Health Care Education/Training Program
DX: R01.1 Cardiac murmur, unspecified (principal); R20.0 Anesthesia of skin; I34.0 Nonrheumatic mitral (valve) insufficiency; I35.1 Nonrheumatic aortic (valve) insufficiency
CPT/HCPCS: 93306

== ENCOUNTER → 2019-02-23 08:12 | Outpatient (BNVA) | payer OTHER, MEDICARE, SELFPAY | PROVIDERS: PCP Family Medicine; Visit Provider Psychiatry & Neurology Neurology | DX: I63.30 Cerebral infarction due to thrombosis of unspecified cerebral artery (principal); I10 Essential (primary) hypertension | CPT/HCPCS: 99204; 99214 ==

== ENCOUNTER 2019-03-09 01:34 | Outpatient (CLI) | payer OTHER, SELFPAY ==
[2019-03-09 14:50] LABS: Hemoglobin A1C 5.5 % (4.5-6.2)
== END 2019-03-09 01:54 ==
PROVIDERS: PCP Family Medicine; Visit Provider Psychiatry & Neurology Neurology
DX: I63.30 Cerebral infarction due to thrombosis of unspecified cerebral artery (principal); R79.89 Other specified abnormal findings of blood chemistry
CPT/HCPCS: 36415; 83036

== ENCOUNTER 2019-04-27 02:22 | Outpatient (CLI) | payer OTHER, SELFPAY ==
[2019-04-28 11:20] LABS: PSA, Diagnostic 1.3 ng/ml (0-6.5)
== END 2019-04-27 02:42 ==
PROVIDERS: PCP Family Medicine; Visit Provider Urology
DX: R97.20 Elevated prostate specific antigen [PSA] (principal)
CPT/HCPCS: 36415; 84153

== ENCOUNTER → 2019-05-05 11:00 | Outpatient (BNVA) | payer OTHER, SELFPAY | PROVIDERS: PCP Family Medicine; Referring Provider Family Medicine; Visit Provider Nurse Practitioner Gerontology | DX: Z87.442 Personal history of urinary calculi (principal); Z87.438 Personal history of other diseases of male genital organs; I10 Essential (primary) hypertension | CPT/HCPCS: 99203; 99214 ==

== ENCOUNTER → 2019-05-20 16:37 | Outpatient (REF) | payer OTHER, SELFPAY ==
[2019-05-20 13:14] LABS: Bilirubin Negative (Negative); Blood Small (Negative); Clarity Clear (Clear); Glucose Negative (Negative); Ketones Negative (Negative); Leukocyte Esterase Negative (Negative); Nitrite Negative (Negative); Urobilinogen 0.2 EU/dL (Up TO 0.2); pH 5.5 (5-8)
[2019-05-20 13:28] LABS: Bacteria Negative HPF (Negative); C & S Indicated? No; Casts Negative LPF (Negative); Crystals Negative HPF (Negative); Epithelial Cells Rare HPF (Negative); Mucus Negative (Negative); WBC 0-2 HPF (0-5)
== END ==
LOC: LBN 16:37
PROVIDERS: PCP Family Medicine; Visit Provider Family Medicine
DX: R39.15 Urgency of urination (principal)
CPT/HCPCS: 81003; 81015

== ENCOUNTER 2019-06-04 00:43 | Outpatient (CLI) | payer OTHER, SELFPAY ==
--- NOTE | 2019-06-04 10:06 | DI.CT_ITS ---
EXAM: CT RENAL COLIC WO CLINICAL HISTORY: Hx of renal stones - recently treated with Bactrim, R30.0 DYSURIA, R39.15 TECHNIQUE: Noncontrast. COMPARISON: RENAL COLIC WO CONTRAST from 11/29/2016 FINDINGS: There is a 4 millimeter stone at the upper pole of the right kidney. There is an additional tiny st one in the mid right kidney. There is a 2-3 millimeter stone in the mid left kidney. No hydronephro sis or ureteral calculi are seen. There are no perinephric collections. There is an apparent TURP d efect in the prostate. There is mild bladder wall thickening. No focal bladder abnormality. The suzie ng bases are clear. The heart size is normal. The liver, spleen, gallbladder, adrenals and pancreas are unremarkable. There is diverticulosis of the descending and sigmoid colon. There is no evidence of diverticulitis. The appendix appears normal. There is no small bowel dilatation. No adenopathy is seen. The aorta is normal in diameter. There is a tiny fatty containing umbilical hernia. Dege nerative changes are seen in the spine. IMPRESSION: Small bilateral nonobstructing renal calculi.
== END 2019-06-04 01:03 ==
PROVIDERS: PCP Family Medicine
DX: R30.0 Dysuria (principal); R39.15 Urgency of urination; N20.0 Calculus of kidney; N32.89 Other specified disorders of bladder; K42.9 Umbilical hernia without obstruction or gangrene; Z87.442 Personal history of urinary calculi
CPT/HCPCS: 74176

== ENCOUNTER 2019-12-22 01:07 | Outpatient (CLI) | payer OTHER, SELFPAY ==
[2019-12-23 10:26] LABS: PSA, Screening 1.4 ng/mL (0.0-6.5)
== END 2019-12-22 01:27 ==
PROVIDERS: PCP Family Medicine; Visit Provider Nurse Practitioner Gerontology
DX: Z12.5 Encounter for screening for malignant neoplasm of prostate (principal)
CPT/HCPCS: 36415; 84153

== ENCOUNTER → 2019-12-31 14:24 | Outpatient (BNVA) | payer OTHER, SELFPAY | PROVIDERS: PCP Family Medicine; Referring Provider Family Medicine; Visit Provider Urology | DX: R35.1 Nocturia (principal); Z87.898 Personal history of other specified conditions | CPT/HCPCS: 99213 ==

== ENCOUNTER 2020-04-12 01:20 | Outpatient (CLI) | payer OTHER, SELFPAY ==
--- NOTE | 2020-04-12 07:00 | DI.RAD_ITS ---
EXAM: XR KNEE RT 3V AP,LAT,NILDA CLINICAL HISTORY: right knee pain,M25.561 TECHNIQUE: 2D digital imaging was performed. COMPARISON: No exams were available for comparison FINDINGS: Femoral tibial joint spaces are well maintained. There is mild periarticular spurring. There is mil [id number] spurring at the articular aspect of the patella. No joint effusion is seen. IMPRESSION: Mild degenerative changes.
== END 2020-04-12 01:40 ==
PROVIDERS: PCP Family Medicine; Visit Provider Family Medicine
DX: M17.11 Unilateral primary osteoarthritis, right knee (principal); M25.561 Pain in right knee
CPT/HCPCS: 73562

== ENCOUNTER 2020-05-19 01:42 | Outpatient (CLI) | payer OTHER, SELFPAY ==
[2020-05-19 12:52] LABS: ALT 36 U/L (16-63); AST 19 U/L (15-37); Albumin 3.7 g/dL (3.4-5.0); Alkaline Phosphatase 61 U/L (46-116); Anion Gap 6.9 mmol/L (3-11); BUN 19 mg/dL (7-18); CO2 32.1 mmol/L (21.0-32.0); CREATININE 1.23 mg/dL (0.70-1.30); Calcium 9.2 mg/dL (8.5-10.1); Chloride 105 mmol/L (98-107); Estimated GFR 58.01 (mL/min/1.73m2); Glucose 78 mg/dL (74-106); Potassium 3.5 mmol/L (3.5-5.1); Sodium 144 mmol/L (136-145); Total Protein 6.8 g/dL (6.4-8.2)
== END 2020-05-19 02:02 ==
PROVIDERS: PCP Family Medicine; Visit Provider Family Medicine
DX: I10 Essential (primary) hypertension (principal)
CPT/HCPCS: 36415; 80053

== ENCOUNTER 2020-12-21 11:22 | Outpatient (CLI) | payer OTHER, SELFPAY ==
--- NOTE | 2020-12-21 11:15 | DI.RAD_ITS ---
Exam(s) XR HIP LT COMPLETE AP PELVIS EXAM: XR HIP LT COMPLETE AP PELVIS CLINICAL HISTORY: left hip pain M25.552, Z87.898 HISTORY OF OTHER CONDITION. TECHNIQUE: 2D digital imaging was performed. COMPARISON: None FINDINGS: There is no evidence of pelvic nor hip fracture. No obvious degenerative changes in the hips. Bone density is normal. No osseous lesions. Advanced disc space narrowing in the lower lumbar spine note d. IMPRESSION: DATA REPOSITORY: RADIATION DOSE DELIVERED:
--- NOTE | 2020-12-21 11:15 | DI.RAD_ITS ---
Exam(s) XR LUMBAR SPINE COMPLETE EXAM: XR LUMBAR SPINE COMPLETE CLINICAL HISTORY: LBP, s/p [id number], M51.16 INTERVERTEBRAL DISC DISORDERS. TECHNIQUE: 2D digital imaging was performed. COMPARISON: CR LUMBAR SPINE COMPLETE from 03/27/2015 FINDINGS: There is no evidence of compression fracture or listhesis nor pars defects. There has been progressi on of disc height loss at L5-S1 level, previously mild and now moderate-advanced. There is moderate- advanced degenerative disc space narrowing at L4-5 level which is unchanged. Moderate disc space constantine rowing at L3-4 level unchanged and with mild retrolisthesis of L3 upon L4. Moderate disc space narro wing at the 2 levels above this, unchanged. There is multilevel anterior osseous lipping. Only mild facet joint degenerative changes are noted. Sacroiliac joints appear unremarkable. IMPRESSION: Some further progression of degenerative disc disease when compared to 2014. This is most evident at the L5-S1 level. No osseous lesions. DATA REPOSITORY: RADIATION DOSE DELIVERED:
== END 2020-12-21 11:42 ==
PROVIDERS: PCP Family Medicine; Visit Provider Family Medicine
DX: M25.552 Pain in left hip (principal); M51.16 Intervertebral disc disorders with radiculopathy, lumbar region; Z87.898 Personal history of other specified conditions; I10 Essential (primary) hypertension
CPT/HCPCS: 72110; 73502

== ENCOUNTER 2020-12-26 03:18 | Outpatient (CLI) | payer OTHER, SELFPAY ==
[2020-12-26 12:53] LABS: ALT 71 U/L (16-63); AST 43 U/L (15-37); Albumin 3.7 g/dL (3.4-5.0); Alkaline Phosphatase 65 U/L (46-116); Anion Gap 8.4 mmol/L (3-11); BUN 18 mg/dL (7-18); Bilirubin, Total 0.8 mg/dL (0.2-1.0); CO2 29.6 mmol/L (21.0-32.0); CREATININE 1.3 mg/dL (0.70-1.30); Calcium 9.1 mg/dL (8.5-10.1); Chloride 107 mmol/L (98-107); Estimated GFR 54.26 (mL/min/1.73m2); Glucose 91 mg/dL (74-106); Potassium 3.9 mmol/L (3.5-5.1); Sodium 145 mmol/L (136-145); Total Protein 6.7 g/dL (6.4-8.2)
[2020-12-26 17:22] LABS: PSA, Diagnostic 1.1 ng/mL (0.0-6.5)
== END 2020-12-26 03:19 | disposition home or self-care (01) ==
PROVIDERS: Urology; PCP Family Medicine; Visit Provider Family Medicine
DX: I10 Essential (primary) hypertension (principal); R97.20 Elevated prostate specific antigen [PSA]
CPT/HCPCS: 36415; 80053; 84153

== ENCOUNTER → 2021-04-30 13:31 | Outpatient (BNVA) | payer MEDICARE, SELFPAY | PROVIDERS: PCP Family Medicine; Referring Provider Family Medicine; Visit Provider Nurse Practitioner Gerontology | DX: R33.8 Other retention of urine (principal); R39.89 Other symptoms and signs involving the genitourinary system | CPT/HCPCS: 81003; 99213 ==

== ENCOUNTER 2022-01-01 03:09 | Outpatient (CLI) | payer MEDICARE, SELFPAY ==
[2022-01-01 19:33] LABS: PSA, Diagnostic 1.3 ng/mL (<=6.5)
== END 2022-01-01 03:10 | disposition home or self-care (01) ==
LOC: LBO 03:10
PROVIDERS: PCP Family Medicine; Visit Provider Nurse Practitioner Gerontology
DX: R97.20 Elevated prostate specific antigen [PSA] (principal)
CPT/HCPCS: 36415; 84153

== ENCOUNTER → 2022-01-15 13:58 | Outpatient (BNVA) | payer MEDICARE, SELFPAY | PROVIDERS: PCP Family Medicine; Referring Provider Family Medicine; Visit Provider Urology | DX: R35.1 Nocturia (principal); R97.20 Elevated prostate specific antigen [PSA] | CPT/HCPCS: 81003; 99214 ==

== ENCOUNTER 2022-02-11 01:49 | Outpatient (CLI) | payer MEDICARE, SELFPAY ==
--- NOTE | 2022-02-11 07:15 | DI.CT_ITS ---
Exam(s) CT BRAIN NECK CTA EXAM: CT BRAIN NECK CTA CLINICAL HISTORY: DIPLOPIA ON SEVERAL OCCASIONS,H53.2. TECHNIQUE: Imaging Protocol: Axial CT angiography was performed with multi-slice acquisition and mu lti-planar and/or 3D reconstructions. CONTRAST MATERIAL: Intravenous: Omnipaque 350 Contrast volume:structured data in ml COMPARISON: CT CT RENAL COLIC WO from 06/04/2019 FINDINGS: CTA Neck W: Aortic arch anatomy: The aortic arch anatomy is conventional. There is no evidence of stenosis at the origin of the great vessels off of the aortic arch. Anterior circulation: Both common carotid arteries ascend with normal luminal diameters and without significant tortuosity. There is no significant atherosclerotic disease at the carotid bifurcations and proximal internal c arotid arteries. No significant stenosis at these levels and both internal carotid arteries are demo nstrated to be nicely patent in the upper neck and skull base-carotid canals. These vessels are not tortuous in the upper neck. Posterior circulation: Both vertebral arteries originated conventional fashion off of the subclavian arteries and there is n o evidence of significant stenosis in the subclavian arteries proximal to the vertebral artery takeof f points (which can result in subclavian steal syndrome). There is no significant stenosis at the or igin of the vertebral arteries off of the subclavian arteries and both vertebral arteries ascend with in the foramen transverse area with normal luminal diameters and no evidence of intraluminal thrombus nor dissection of the vertebral arteries. At the skull base the left vertebral artery is the domina nt contributor to the formation of the basilar artery. The right vertebral artery is thinner at the skull base level.. CTA Brain W: Anterior circulation: Both internal carotid arteries are patent in the skull base carotid sinuses as well as within the cav ernous sinuses. Supraclinoid aspects of these vessels are patent. Both A1 segments are patent as ar e both anterior cerebral arteries and there is no evidence of aneurysm at the level of the anterior c ommunicating artery. Both middle cerebral arteries are patent with no significant stenosis nor intraluminal thrombus. Als o no aneurysms of these vessels. Posterior circulation: Basilar artery is formed at the skull base by both vertebral arteries, the left being dominant. Basi lar artery is sends in the midline. Distally the basilar artery terminates as posterior cerebral art eries. There are posterior communicating arteries on both sides [id number]. No aneurysm seen at the tip of the basilar artery. CT BRAIN: There is no evidence of intracranial hemorrhage, mass effect, or shift of midline structures. There are no extra-axial fluid collections. Ventricles are not enlarged or shifted. There are no ring enh ancing lesions in the brain and no abnormal meningeal enhancement. IMPRESSION: 1. No significant atherosclerotic disease in the carotid arteries of the neck. No plaque evident. C ommon and internal carotid arteries are not tortuous in the neck 2. Patent intracranial arteries. No evidence of significant stenosis. No aneurysms. 3. No acute intracranial findings. No hemorrhage. No ring enhancing lesions in the brain. RADIATION DOSE DELIVERED: 2,174.61mGy.cm Total DLP DATA REPOSITORY: All CT scans at this facility are submitted to the National Radiology Data Registry (NRDR) Dose Index Registry (DIR) with the [employer] ([employer]). RADIATION OPTIMIZATION: All CT scans at this facility use at least one of these dose optimization te chniques: automated exposure control; mA and/or kV adjustment per patient size (includes targeted exa ms where dose is matched to clinical indication); or iterative reconstruction.
[2022-02-11 10:34] LABS: HCT 43.5 % (40.0-50.0); HGB 15.4 g/dL (13.5-17.5); MCH 34.1 pg (27.0-33.0); MCHC 35.4 % (32.0-36.0); MCV 97 fL (80-95); MPV 11.1 fL (8.0-11.0); Platelet Count 140 10^3/uL (130-400); RBC 4.51 10^6/uL (4.36-5.78); RDW-SD 42.7 fL; WBC 5.16 10^3/uL (4.4-10.8)
[2022-02-11 10:57] LABS: ALT 34 U/L (16-63); AST 26 U/L (15-37); Albumin 3.3 g/dL (3.4-5.0); Alkaline Phosphatase 52 U/L (46-116); Anion Gap 8.3 mmol/L (3-11); BUN 20 mg/dL (7-18); Bilirubin, Total 0.9 mg/dL (0.2-1.0); CO2 29.7 mmol/L (21.0-32.0); CREATININE 1.1 mg/dL (0.70-1.30); Calcium 8.6 mg/dL (8.5-10.1); Calculated LDL 160 mg/dL (<100); Chloride 104 mmol/L (98-107); Cholesterol 252 mg/dL (<200); Glucose 100 mg/dL (74-106); HDL Cholesterol 65 mg/dL (40-60); Potassium 4.3 mmol/L (3.5-5.1); Sodium 142 mmol/L (136-145); Total Protein 6.7 g/dL (6.4-8.2); Triglyceride 138 mg/dL (<150)
[2022-02-11] MEDS: Omnipaque 350 MG/ML 100 ML BTL IJ (11:36)
== END 2022-02-11 02:09 ==
LOC: DI 01:49
PROVIDERS: PCP Family Medicine; Visit Provider Family Medicine
DX: H53.2 Diplopia (principal)
CPT/HCPCS: 70496; 70498; 80053; 80061; 85027; 84443; J3490

== ENCOUNTER → 2022-06-04 08:24 | Outpatient (BNVA) | payer MEDICARE, SELFPAY | PROVIDERS: PCP Family Medicine; Referring Provider Family Medicine; Visit Provider Urology | DX: N52.9 Male erectile dysfunction, unspecified (principal) | CPT/HCPCS: 99213 ==

== ENCOUNTER → 2022-06-24 13:32 | Outpatient (BNVA) | payer MEDICARE, SELFPAY | PROVIDERS: PCP Family Medicine; Referring Provider Family Medicine; Visit Provider Urology | DX: I10 Essential (primary) hypertension (principal); E78.5 Hyperlipidemia, unspecified; Z86.73 Personal history of transient ischemic attack (TIA), and cerebral infarction without residual deficits; N52.9 Male erectile dysfunction, unspecified | CPT/HCPCS: 54235; 99213; J0270 ==

== ENCOUNTER 2022-11-26 12:53 | Outpatient (CLI) | payer MEDICARE, SELFPAY ==
--- NOTE | 2022-11-26 10:45 | DI.RAD_ITS ---
Exam(s) XR SHOULDER RT COMPLETE 2+V EXAM: XR SHOULDER RT COMPLETE 2+V CLINICAL HISTORY: r shoulder pain,m25.511. TECHNIQUE: 2D digital imaging was performed of the right shoulder. Five images were obtained. AP, Grashey, Y-view and axillary views were obtained. COMPARISON: No exams were available for comparison FINDINGS: BONES: No acute fracture is present. No bony destructive lesion is seen. Postsurgical changes are see n in the humeral head. JOINTS: No dislocation present. There are degenerative changes seen at the glenohumeral and acromiocl avicular joints characterized by joint space narrowing and bony hypertrophy. SOFT TISSUE: Normal. IMPRESSION: Degenerative changes of the shoulder. DATA REPOSITORY: RADIATION DOSE DELIVERED:
== END 2022-11-26 13:13 ==
LOC: DI 12:53
PROVIDERS: PCP Family Medicine; Visit Provider Family Medicine
DX: M25.511 Pain in right shoulder (principal)
CPT/HCPCS: 73030

== ENCOUNTER → 2023-01-17 14:25 | Outpatient (BNVA) | payer MEDICARE, SELFPAY | PROVIDERS: PCP Family Medicine; Visit Provider Urology | DX: Z09 Encounter for follow-up examination after completed treatment for conditions other than malignant neoplasm (principal); Z87.442 Personal history of urinary calculi; N40.1 Benign prostatic hyperplasia with lower urinary tract symptoms; R39.89 Other symptoms and signs involving the genitourinary system | CPT/HCPCS: 99213 ==

== ENCOUNTER 2023-01-17 15:22 | Outpatient (REF) | payer MEDICARE, SELFPAY ==
[2023-01-20 09:51] LABS: PSA, Diagnostic 1.5 ng/mL (<=6.5)
== END 2023-01-17 15:23 | disposition home or self-care (01) ==
LOC: LBN 15:22
PROVIDERS: PCP Family Medicine; Visit Provider Urology
DX: R97.20 Elevated prostate specific antigen [PSA] (principal)
CPT/HCPCS: 84153

== ENCOUNTER 2023-03-19 02:51 | Outpatient (CLI) | payer MEDICARE, SELFPAY ==
[2023-03-19 12:27] LABS: ALT 36 U/L (16-63); AST 20 U/L (15-37); Albumin 3.5 g/dL (3.4-5.0); Alkaline Phosphatase 65 U/L (46-116); Anion Gap 8.2 mmol/L (3-11); BUN 20 mg/dL (7-18); Bilirubin, Total 0.9 mg/dL (0.2-1.0); CO2 30.8 mmol/L (21.0-32.0); CREATININE 1.3 mg/dL (0.70-1.30); Chloride 106 mmol/L (98-107); Estimated GFR 57.65 (mL/min/1.73m2); Glucose 98 mg/dL (74-106); Potassium 3.7 mmol/L (3.5-5.1); Sodium 145 mmol/L (136-145)
== END 2023-03-19 02:52 | disposition home or self-care (01) ==
LOC: LOS 02:51
PROVIDERS: PCP Family Medicine; Visit Provider Family Medicine
DX: I10 Essential (primary) hypertension (principal)
CPT/HCPCS: 36415; 80053

== ENCOUNTER 2023-11-21 02:00 | Outpatient (CLI) | payer MEDICARE, SELFPAY ==
[2023-11-21 12:17] LABS: ESR 1 mm/hr (0-20)
[2023-11-21 12:18] LABS: HCT 43.8 % (40.0-50.0); HGB 15.5 g/dL (13.5-17.5); MCH 33.7 pg (27.0-33.0); MCHC 35.4 % (32.0-36.0); MCV 95 fL (80-95); MPV 11.2 fL (8.0-11.0); Platelet Count 152 10^3/uL (130-400); RDW 12.5 % (11.8-14.1); RDW-SD 44.4 fL; WBC 5.23 10^3/uL (4.4-10.8)
[2023-11-21 12:57] LABS: ALT 62 U/L (16-63); AST 31 U/L (15-37); Albumin 3.8 g/dL (3.4-5.0); Alkaline Phosphatase 58 U/L (46-116); Anion Gap 12.2 mmol/L (3-11); BUN 19 mg/dL (7-18); CO2 26.8 mmol/L (21.0-32.0); CREATININE 1.4 mg/dL (0.70-1.30); Calcium 9.1 mg/dL (8.5-10.1); Chloride 103 mmol/L (98-107); Estimated GFR 52.41 (mL/min/1.73m2); Glucose 102 mg/dL (74-106); Potassium 3.3 mmol/L (3.5-5.1); Sodium 142 mmol/L (136-145); TSH (W/Ref FT4) 1.86 uIU/mL (0.36-3.74); Total Protein 7.2 g/dL (6.4-8.2); Vitamin B12 793 pg/mL (193-986)
== END 2023-11-21 02:01 | disposition home or self-care (01) ==
LOC: LOS 02:01
PROVIDERS: PCP Family Medicine; Visit Provider Family Medicine
DX: K14.6 Glossodynia (principal); E03.9 Hypothyroidism, unspecified; I10 Essential (primary) hypertension; M79.18 Myalgia, other site
CPT/HCPCS: 36415; 80053; 85027; 85652; 82607; 84443

== ENCOUNTER 2024-01-16 02:58 | Outpatient (CLI) | payer MEDICARE, SELFPAY ==
[2024-01-16 22:57] LABS: PSA, Diagnostic 1.8 ng/mL (<=6.5)
== END 2024-01-16 02:59 | disposition home or self-care (01) ==
LOC: LBO 02:58
PROVIDERS: Urology; PCP Family Medicine; Visit Provider Family Medicine
DX: R97.20 Elevated prostate specific antigen [PSA] (principal)
CPT/HCPCS: 36415; 84153

== ENCOUNTER 2024-11-23 10:37 | Outpatient (CLI) | payer MEDICARE, SELFPAY ==
--- NOTE | 2024-11-23 10:48 | DI.RAD_ITS ---
Exam(s) XR SHOULDER LT COMPLETE 2+V EXAM: XR SHOULDER LT COMPLETE 2+V CLINICAL HISTORY: evaluate shoulder. TECHNIQUE: 2D digital imaging was performed of the left shoulder. Two images were obtained. Grashe y and axillary views were obtained. COMPARISON: There are no priors for comparison. FINDINGS: BONES: No acute fracture is present. No bony destructive lesion is seen. JOINTS: No dislocation present. There are mild degenerative changes seen at both the acromioclavicula r and glenohumeral joints. There is a well corticated osseous density adjacent to the lateral aspect of the humeral head which may represent calcific tendinitis. SOFT TISSUE: Normal. IMPRESSION: Mild degenerative changes of the left shoulder. DATA REPOSITORY: RADIATION DOSE DELIVERED:
== END 2024-11-23 10:38 | disposition home or self-care (01) ==
LOC: DIORS 10:37
PROVIDERS: PCP Family Medicine; Visit Provider Student in an Organized Health Care Education/Training Program
DX: M19.011 Primary osteoarthritis, right shoulder; M19.012 Primary osteoarthritis, left shoulder; I10 Essential (primary) hypertension
CPT/HCPCS: 20610; 99214; J1010; 73030

== ENCOUNTER 2024-12-07 08:29 | Outpatient (CLI) | payer MEDICARE, SELFPAY ==
[2024-12-07 12:58] LABS: ALT 40 U/L (16-63); AST 22 U/L (15-37); Albumin 3.3 g/dL (3.4-5.0); Alkaline Phosphatase 60 U/L (46-116); Anion Gap 7.3 mmol/L (3-11); BUN 16 mg/dL (7-18); CO2 28.7 mmol/L (21.0-32.0); CREATININE 1.1 mg/dL (0.70-1.30); Calcium 8.6 mg/dL (8.5-10.1); Calculated LDL 164 mg/dL (<100); Chloride 106 mmol/L (98-107); Cholesterol 255 mg/dL (<200); Estimated GFR 69.57 (mL/min/1.73m2); Glucose 95 mg/dL (74-106); HDL Cholesterol 61 mg/dL (>or=40); Potassium 3.4 mmol/L (3.5-5.1); Sodium 142 mmol/L (136-145); Total Protein 6.6 g/dL (6.4-8.2); Triglyceride 154 mg/dL (<150)
== END 2024-12-07 08:30 | disposition home or self-care (01) ==
LOC: LOS 08:29
PROVIDERS: PCP Family Medicine; Referring Provider Family Medicine; Visit Provider Family Medicine
DX: I10 Essential (primary) hypertension (principal)
CPT/HCPCS: 36415; 80053; 80061

== ENCOUNTER 2025-01-13 01:51 | Outpatient (CLI) | payer MEDICARE, SELFPAY ==
[2025-01-13 19:22] LABS: PSA, Diagnostic 1.8 ng/mL (<=6.5)
== END 2025-01-13 01:52 | disposition home or self-care (01) ==
LOC: LOS 01:52
PROVIDERS: PCP Family Medicine; Visit Provider Urology
DX: R97.20 Elevated prostate specific antigen [PSA] (principal)
CPT/HCPCS: 36415; 84153

== ENCOUNTER → 2025-01-21 14:28 | Outpatient (BNVA) | payer MEDICARE, SELFPAY | PROVIDERS: PCP Family Medicine; Referring Provider Family Medicine; Visit Provider Urology | DX: Z87.438 Personal history of other diseases of male genital organs (principal); Z12.5 Encounter for screening for malignant neoplasm of prostate | CPT/HCPCS: 99213; 81002 ==

== ENCOUNTER 2025-03-30 01:13 | Outpatient (CLI) | payer MEDICARE, SELFPAY ==
--- NOTE | 2025-03-30 06:55 | DI.RAD_ITS ---
Exam(s) XR THUMB LT EXAM: XR THUMB LT EXAM DATE/TIME: CLINICAL HISTORY: left thumb pain,M79.645. TECHNIQUE: 2D digital imaging was performed of the left finger. Three views were obtained. PA/AP, oblique, and lateral views were obtained. COMPARISON: None. FINDINGS: BONES: No acute fracture is present. No bony destructive lesion is seen. JOINTS: No dislocation is present. Moderate degenerative changes are seen in the thumb characterized by joint space narrowing and osteophytes, particularly at the 1st CMC joint. There is joint space narrowing at the interphalangeal joint in the MCP joint of the thumb. SOFT TISSUE: Normal. IMPRESSION: Moderate osteoarthritis of the left thumb, particularly at the CMC joint. DATA REPOSITORY: RADIATION DOSE DELIVERED:
== END 2025-03-30 01:33 ==
LOC: DI 01:13
PROVIDERS: PCP Family Medicine; Visit Provider Family Medicine
DX: M79.645 Pain in left finger(s) (principal)
CPT/HCPCS: 73140